=== PATIENT | female | born 1965 | race Caucasian/White ===

== ENCOUNTER 2018-07-28 18:09 | Emergency (ER) | payer MEDICARE, MEDICAID ==
[~2018-07-28] VITALS: Ht 170.2 cm; Wt 63.6 kg
--- NOTE | 2018-07-28 18:24 | NUR ---
PT BIB [facility]. PER [facility] WHILE CROSSING THE ROAD. PT REPORTS HAVING 10 BEERS TODAY. SLURRED SPEECH. PT POOR HISTORIAN. PT REQUIRES FREQUENT REDIRECTION AND REASSURANCE. TEARFUL AT TIMES.
--- NOTE | 2018-07-28 18:41 | NUR ---
PT ESCORTED TO BATHROOM, X2 ASSIST. PT UNSTEADY AND STAGGERING GAIT. PT BACK TO BED WITHOUT INCIDENT.
--- NOTE | 2018-07-28 19:03 | NUR ---
BS REPORT WITH SARA JEREZ
--- NOTE | 2018-07-28 19:30 | NUR ---
FOUND PT WANDERING IN TUTTLE, ASSISTED PT BACK TO ROOM, MONITO APPLIED, PROVIDED PT WITH BLANKET, CALL LIGHT WITHIN REACH.
[2018-07-28 19:39] VITALS: BP 99/50
--- NOTE | 2018-07-28 19:50 | NUR ---
PT A&OX4, AMBULATING IN HALLWAY WITH SYEADY GAIT, PT STATED " I WANT TO LEAVE NOW".
== END 2018-07-28 19:58 | disposition home or self-care (01) ==
LOC: EDBD 18:09 → ED 19:50 → MERGE 19:50 → ED 19:58
DX: F10.229 Alcohol dependence with intoxication, unspecified (principal)
CPT/HCPCS: 93005; 99283

== ENCOUNTER 2018-09-11 20:41 | Emergency (ER) | payer MEDICARE, MEDICAID ==
[~2018-09-11] VITALS: Ht 167.6 cm; Wt 80.0 kg
[2018-09-11 20:48] VITALS: BP 130/76
--- NOTE | 2018-09-11 21:09 | NUR ---
Pt eloped, seen walking out of ER with steady gait. Pt intercepted and offered taxi voucher and provided for safe ride home
== END 2018-09-11 21:13 | disposition left against medical advice (07) ==
LOC: ED 21:07
DX: F10.129 Alcohol abuse with intoxication, unspecified (principal); Z53.21 Procedure and treatment not carried out due to patient leaving prior to being seen by health care provider
CPT/HCPCS: 99283

== ENCOUNTER 2018-09-18 15:26 | Emergency (ER) | payer MEDICARE, MEDICAID ==
[~2018-09-18] VITALS: Ht 167.6 cm; Wt 80.0 kg
[2018-09-18 15:31] VITALS: BP 148/96
--- NOTE | 2018-09-18 15:36 | NUR ---
PT HERE FOR ETOH INTOXICATION. PT WAS FOUND ON SIDE OF [place] SLEEPING ON THE SIDEWALK. PEDESTRIAN CALLLED EMS FOR PT THEY WERE CONCERNED FOR HER SAFETY.
--- NOTE | 2018-09-18 16:28 | NUR ---
RN TO THE BEDSIDE. PT. IS GONE. PT. ELOPED FROM THE DEPARTMENT.
== END 2018-09-18 18:34 | disposition left against medical advice (07) ==
LOC: ED 16:25
DX: F10.120 Alcohol abuse with intoxication, uncomplicated (principal); Z90.49 Acquired absence of other specified parts of digestive tract; Z90.710 Acquired absence of both cervix and uterus; Z72.9 Problem related to lifestyle, unspecified
CPT/HCPCS: 99283

== ENCOUNTER 2019-05-06 20:36 | Emergency (ER) | payer MEDICARE, MEDICAID ==
[~2019-05-06] VITALS: Ht 170.2 cm; Wt 78.0 kg
[2019-05-06 20:42] VITALS: BP 155/84
== END 2019-05-06 21:10 | disposition left against medical advice (07) ==
LOC: ED 21:00
DX: F10.129 Alcohol abuse with intoxication, unspecified (principal); Y90.9 Presence of alcohol in blood, level not specified
CPT/HCPCS: 99283

== ENCOUNTER 2019-10-23 15:32 | Emergency (ER) | payer MEDICARE, MEDICAID ==
[~2019-10-23] VITALS: Ht 170.2 cm; Wt 80.0 kg
--- NOTE | 2019-10-23 16:08 | NUR ---
PT BIB [facility], PT WAS FOUND SLEEPING ON [address] AND [address]. PT CLAIMED SHE WAS HAVING A STROKE, EMS STATES SHE THEN DENIED HAVING A STROKE SHE TOLD THEM SHE JUST DIDNT WANT TO GET UP OFF THE GROUND. PT THEN CLAIMED TO BE SHORT OF BREATH WITH COUGH. WHEN ASKED ABOUT WHAT BROUGHT HER TO THE HOSPITAL PT IS NOT CONSISTANT WITH STORY, PT STATES SHE WENT TO [address] TO HAVE A BEER WITH HER STEPAN "LIKE EVERY OTHER DAY YOU KNOW" THEN ASKED HOW MUCH PT DRANK, PT DENIES ETOH USE TODAY. PT DENIES DRUG USE BUT DEMONSTRATING FLIGHT OF IDEAS, JUMPING FROM ONE TOPIC TO ANOTHER, PT THEN BEGINS TEARING OFF AND ON. NO COUGH OBSERVED, TEMP 99.0 PT PLACED TO CARD MONITOR, BP, CONT PULSE OX. ERMD IN TO EVAL PT
[2019-10-23 16:17] LABS: BASOPHILS # (AUTO) 0.05 x10^3/uL (0-0.1); BASOPHILS % (AUTO) 0 % (0-1); EOSINOPHILS # (AUTO) 0.03 x10^3/uL (0-0.4); EOSINOPHILS % (AUTO) 0 % (1-7); LYMPHOCYTES # (AUTO) 2.64 x10^3/uL (1-3.4); LYMPHOCYTES % (AUTO) 22 % (22-44); MD NO; MEAN CORPUSCULAR HEMOGLOBIN 29.2 pg (27.0-34.8); MEAN CORPUSCULAR HGB CONC 33.2 g/dL (32.4-35.8); MEAN PLATELET VOLUME 8.3 fL (7.4-10.4); MONOCYTES # (AUTO) 0.56 x10^3/uL (0.2-0.8); MONOCYTES % (AUTO) 5 % (2-9); NEUTROPHILS # (AUTO) 8.67 x10^3/uL (1.8-6.8); NEUTROPHILS % (AUTO) 73 % (42-75); PLATELET COUNT 411 x10^3/uL (130-400); RED BLOOD COUNT 5.11 x10^6/uL (3.82-5.3); RED CELL DISTRIBUTION WIDTH 15.5 % (9.6-15.2)
[2019-10-23 16:25] LABS: ALBUMIN 4.5 g/dL (3.4-5.0); ANION GAP 15 mmol/L (5-15); CHLORIDE 111 mmol/L (98-107)
[2019-10-23 16:36] LABS: SALICYLATE LEVEL < 1.7 mg/dL (2.8-20.0)
--- NOTE | 2019-10-23 17:45 | NUR ---
PT RESTING ON [employer] AT THIS TIME. VSS. PT UNABLE TO PROVIDE UA SAMPLE YET, WILL UPDATE ERMD. MEAL TRAY ORDERED
--- NOTE | 2019-10-23 19:55 | NUR ---
ASSUMED CARE OF PT. PT RESTING AT THIS TIME. REPORTS SHE IS UNABLE TO AMBULATE. REQUESTED WATER. WATER GIVEN. WILL CONTINUE TO MONITOR.
--- NOTE | 2019-10-23 21:21 | NUR ---
PT ABLE TO AMBULATE WITH STEADY GAIT AROUND THE ER. DRINKING WATER WITH WITHOUT DIFFICULTY.
[2019-10-23 21:23] VITALS: BP 146/72
== END 2019-10-23 21:26 | disposition home or self-care (01) ==
LOC: ED 21:00
DX: F10.120 Alcohol abuse with intoxication, uncomplicated (principal); R06.02 Shortness of breath; R00.0 Tachycardia, unspecified; R05 Cough; Z90.89 Acquired absence of other organs; Z90.710 Acquired absence of both cervix and uterus; Y90.9 Presence of alcohol in blood, level not specified
CPT/HCPCS: 36415; 71045; 80048; 80307; 82040; 85025; 99284

== ENCOUNTER 2020-02-14 13:53 | Emergency (ER) | payer MEDICARE, MEDICAID ==
[~2020-02-14] VITALS: Ht 172.7 cm; Wt 65.9 kg
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
--- NOTE | 2020-02-14 15:11 | NUR ---
ASSISTED PT TO RESTROOM. PT AMBULATED WITH ASSISTANCE. STATES "I DONT KNOW WHERE I AM"
[2020-02-14 16:59] VITALS: BP 124/74
== END 2020-02-14 17:01 | disposition home or self-care (01) ==
LOC: MERGE 15:40 → ED 15:40 → EDBD 15:40 → ED 17:01
DX: F10.120 Alcohol abuse with intoxication, uncomplicated (principal); Y90.9 Presence of alcohol in blood, level not specified; F17.290 Nicotine dependence, other tobacco product, uncomplicated
CPT/HCPCS: 99283; 99406

== ENCOUNTER 2020-04-08 22:06 | Emergency (ER) | payer MEDICARE, MEDICAID ==
[~2020-04-08] VITALS: Ht 162.6 cm; Wt 70.0 kg
--- NOTE | 2020-04-08 22:49 | NUR ---
SEEN BY ERP WILL BE MTF, RESTING IN VIEW OF NURSES STATION WITH NO COMPLAINTS
--- NOTE | 2020-04-09 00:15 | NUR ---
PT GIVEN WATER, STAT SHE IS NOT HUNGRY AT THIS TIME, VSS, NO COMPLAINTS
[2020-04-09 00:42] VITALS: BP 136/91
[2020-04-09] MEDS ORDERED: ACETAMINOPHEN 325 MG TABLET ONE (01:49)
[2020-04-09] MEDS ORDERED: ACETAMINOPHEN 325 MG TABLET PO ONE (02:00)
--- NOTE | 2020-04-09 02:34 | NUR ---
pt resting in view of nurses station, up and ambulates to br with steady gait, requesting bus pass for dc
== END 2020-04-09 02:57 | disposition home or self-care (01) ==
LOC: ED 04-09 01:46
DX: F10.120 Alcohol abuse with intoxication, uncomplicated (principal); F17.210 Nicotine dependence, cigarettes, uncomplicated; Z90.89 Acquired absence of other organs; Z72.9 Problem related to lifestyle, unspecified; Z90.710 Acquired absence of both cervix and uterus; Y90.0 Blood alcohol level of less than 20 mg/100 ml
CPT/HCPCS: 99283; 99406

== ENCOUNTER 2020-09-16 23:00 | Observation (INO) | payer MEDICARE, MEDICAID ==
[~2020-09-16] VITALS: Ht 162.6 cm; Wt 77.4 kg
[2020-09-16] MEDS ORDERED: ONDANSETRON ODT 4 MG ONE (23:05)
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
[2020-09-16] MEDS ORDERED: ONDANSETRON ODT 4 MG PO ONE (23:30)
[2020-09-16] MEDS ORDERED: ZIPRASIDONE 20 MG INJ IM ONE (23:48)
[2020-09-17] MEDS ORDERED: ZIPRASIDONE 20 MG INJ IM ONE ×2
--- NOTE | 2020-09-17 | NUR ---
LATE ENTRY: PT OUT OF BED, UNSTEADY GAIT SHOUTING STAFF UNABLE TO AMBULATE INDEPENDENTLY. PT AGGITATED WITH STAFF NOT FOLLOWING COMMANDS/ REQUESTS. ERP UPDATED VERBAL ORDER FOR SOFT RESTRAINTS AND 10MG GEODON IM. PT BROKE BOTH SOFT RESTRAINTS.
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
--- NOTE | 2020-09-17 01:06 | NUR ---
bedside report from calvin lim, pt care transferred at this time. pt resting on swapna, francisca, still thrashing and growling at staff, aaliyah.
--- NOTE | 2020-09-17 01:52 | NUR ---
PT RESTING ON GURNEY REMAINS IN RESTRAINTS RN CHECKS REMAIN IN PLACE, PT CONTINUES TO BE AGGITATED.
--- NOTE | 2020-09-17 02:50 | NUR ---
PT RESTING ON GURNEY, STILL STATING "IM READY TO GO HOME", PT UNABLE TO WALK AT THIS TIME. BED IN LOWEST, RAILS ENGAGED, CALL LIGHT ON LAP, [facility]. MTF
--- NOTE | 2020-09-17 03:21 | NUR ---
PT RESTING ON GURNEY, NAD, APPEARS COMFORTABLE, COOPERATIVE AT THIS TIME. BED IN LOWEST, RAILS ENGAGED, CALL LIGHT ON LAP, LIGHTS DIMMED FOR COMFORT, [facility]. MTF.
[2020-09-17 03:44] VITALS: BP 142/36
--- NOTE | 2020-09-17 03:45 | NUR ---
TASK RN: PT AMBULATORY WITH STEADY GAIT UPON D/C FROM DEPARTMENT. PT PROVIDED TAXI VOUCHER HOME. VERBALIZED UNDERSTANDING OF D/C INSTRUCTIONS.
== END 2020-09-17 03:51 | disposition home or self-care (01) ==
LOC: ED 09-17 01:39 → EDIP 09-17 01:46
PROVIDERS: ADMIT Emergency Medicine; ATTEND Emergency Medicine
DX: F10.120 Alcohol abuse with intoxication, uncomplicated (principal); G31.2 Degeneration of nervous system due to alcohol; Z78.1 Physical restraint status; Z90.710 Acquired absence of both cervix and uterus
CPT/HCPCS: 96372; 99284; G0378; J3486; Q0162